=== PATIENT | female | born 1955 | race African-American/Black ===

== ENCOUNTER 2016-10-28 08:49 | Emergency (ER) | payer BC ==
[~2016-10-28] VITALS: Ht 172.7 cm; Wt 91.0 kg
[2016-10-28] MEDS ORDERED: SODIUM CHLORIDE 0.9% 1,000 ML IV ONE (09:31)
[2016-10-28] MEDS ORDERED: LORAZEPAM 2MG/ML CPJ IV ONE (09:45)
[2016-10-28] MEDS ORDERED: LEVETIRACETAM 500MG PREMIX 100 ML IV ONE (09:45)
[2016-10-28 10:31] LABS: BASOPHILS % 0.4 % (0.0-2.0); HEMOGLOBIN. 12.2 g/dL (12.0-16.0); LYMPHOCYTES % 18.2 % (20.0-50.0); MEAN CORPUSCULAR HEMOGLOBIN 29.1 pg (28.0-32.0); MEAN CORPUSCULAR HGB CONC 33.1 g/dL (31.0-37.0); MEAN CORPUSCULAR VOLUME 87.9 fL (81.0-99.0); MEAN PLATELET VOLUME 8.3 fl (7.4-10.4); MONOCYTES % 4.3 % (2.0-8.0); NEUTROPHILS % 77.1 % (40.0-76.0); PLATELET 346 x1000/uL (130-400); RED BLOOD CELL COUNT 4.21 mill/uL (4.2-5.4); RED CELL DISTRIBUTION WIDTH 13.8 % (11.6-14.6); WHITE BLOOD COUNT 7.6 x1000/uL (4.5-11.0)
[2016-10-28 10:38] LABS: PROTHROMBIN TIME 10.7 sec
[2016-10-28 10:45] LABS: ALANINE AMINOTRANSFERASE 26 IU/L (13-61); ALBUMIN 3.7 g/dL (3.4-5.0); ANION GAP 14; CALCIUM 9.5 mg/dL (8.5-10.1); CARBON DIOXIDE 26 mEq/L (21-32); CHLORIDE 107 mEq/L (98-107); CREATINE KINASE 428 IU/L (26-192); ETHANOL BLOOD < 10 mg/dL; INDEX HEMOLYSI 1 (1-3); INDEX ICTERIC 1 (1-4); INDEX LIPEMIC 1 (1-3); NT PRO B-TYPE NATRIURETIC PEP 96 pg/mL (5-125); PHENYTOIN 1.1 ug/mL (10-20); TROPONIN I < 0.02 ng/mL (0.00-0.04); UREA NITROGEN BLOOD 12 mg/dL (7-21); eGFR > 60 mL/min (>60)
[2016-10-28 10:52] LABS: THYROID STIMULATING HORMONE 0.29 uIU/mL (0.36-3.74)
[2016-10-28 10:57] LABS: CARBAMAZEPINE < 0.5 ug/mL (4-12); PHENOBARBITAL < 2.1 ug/mL (15.0-40.0); VALPROIC ACID < 3.0 ug/mL (50-100)
[2016-10-28 13:06] VITALS: BP 126/59
== END 2016-10-28 14:14 | disposition home or self-care (01) ==
LOC: ER 10:27
DX: G40.909 Epilepsy, unspecified, not intractable, without status epilepticus (principal); R00.0 Tachycardia, unspecified; C71.9 Malignant neoplasm of brain, unspecified; I10 Essential (primary) hypertension
CPT/HCPCS: 36415; 80053; 80156; 80165; 80184; 80185; 82550; 83880; 84443; 84484; 85025; 85610; 93005; 96361; 96374; 99285; G0482; J1953; J2060; J7030; Z7610